=== PATIENT | female | born 1955 | race Caucasian/White ===

== ENCOUNTER 2021-08-15 14:59 | Outpatient (RCR) | payer SELFPAY | END 2021-08-19 | LOC: OT 14:59 | PROVIDERS: ATTEND Orthopaedic Surgery Sports Medicine | DX: S52.592A Other fractures of lower end of left radius, initial encounter for closed fracture (principal) ==

== ENCOUNTER → 2021-09-16 | Outpatient (RCR) | payer SELFPAY | LOC: OT 08-20 11:36 | PROVIDERS: ATTEND Orthopaedic Surgery Sports Medicine | DX: S52.502B Unspecified fracture of the lower end of left radius, initial encounter for open fracture type I or II (principal) ==

== ENCOUNTER 2021-09-27 12:00 | Outpatient (RCR) | payer SELFPAY | END 2021-10-17 | LOC: OT 12:00 | PROVIDERS: ATTEND Orthopaedic Surgery Sports Medicine | DX: S52.592A Other fractures of lower end of left radius, initial encounter for closed fracture (principal) ==